=== PATIENT | male | born 1950 | race Caucasian/White ===

== ENCOUNTER 2019-01-21 15:30 | Inpatient (IN) | payer MEDICARE, OTHER, SELFPAY ==
[2019-01-21 15:49] VITALS: BP 127/76; PULSE 71; RESP 18; TEMP 36.8; O2SAT 94; BMI 28.1; BMI 28.2
--- NOTE | 2019-01-21 17:43 | PN_ITS ---
Subjective: Chief complaint: Consultation for medical management after admission to inpatient rehabitation unit. This is a 68 years of male patient who underwent fusion/revision from T10 down to the sacrum and he was admitted to inpatient rehabilitation unit due to debility for physical and occupational therapy. At this time, he complained of low back pain, dull aching pain, 10 out of 10 in severity, not radiating, aggravated by movement and nurses about ready to give him his pain medicine. He had urinary retention after surgery, Kelley catheter was placed which was taken out today and he was started on Flomax. His vital signs are stable. - Physical Exam General: Alert, Oriented x3, Cooperative, No apparent distress HEENT: Atraumatic, PERRLA, EOMI, Normocephalic Oral: Moist Mucosa, No Gingival or Mucosal Lesions/ Ulcerations Neck: Supple, No JVD, Negative Carotid Bruits, Trachea Midline, Thyroid Normal Size and Texture Lungs: Clear to auscultation, No rhonchi, No wheeze, No rales, Diminished Cardiovascular: Regular rate, Regular Rhythm, Normal S1, Normal S2, No murmurs, PMI Normal Abdomen: Bowel Sounds Present, Soft, Non Tender, Non-Distended, No Hepato- splenomegaly Extremities: No clubbing, No cyanosis, No edema Skin: No rashes, No breakdown Lymphatic: No Cervical, Supraclavicular, or Inguinal Adenopathy Neurological: Cranial nerves II-XII grossly intact, Motor Exam 5/5 strength throughout Psych/Mental Status: Normal Affect, Appropriate, Alert and oriented to time, place, person, mood and affect Vital Signs Temp Pulse Resp BP Pulse Ox 98.2 F 71 18 127/76 H 94 01/21/19 15:49 01/21/19 15:49 01/21/19 15:49 01/21/19 15:49 01/21/19 15:49 Oxygen Delivery Method Room Air Weight: 180 lb Body Mass Index (BMI) 28.1 Medical Necessity - Tobacco Use Smoking Status: Former smoker Tobacco Use: Cigarettes Assessment/Plan This is a 68 years old male patient underwent fusion/revision of the tendon down to the sacrum, subsequently admitted to inpatient rehabilitation unit for debility for physical and occupational therapy and I am seeing this patient for medical management. #1 debility/spinal fusion/revision of T10 down to sacrum: This was done at outside facility on January 15, 2019. Postoperative course complicated by urinary retention. At this time, patient complained of low back pain, 10 out of 10 severity. His vital signs are stable. He is on p.o. Dilaudid as well as Tylenol PRN for pain. CBC and BMP ordered for tomorrow. Plan for PT OT according to rehab team. #2 urinary retention: Status post removal of the Kelley catheter, patient has been urinating. Continue Flomax. #3 DVT prophylaxis: SCDs. This note was generated with [employer] dictation software. It may contain incorrect words, spelling, and punctuation that were not noted in checking the note before signing. Code Visit Inpatient E&M: 35242 Subs Hosp L2
[2019-01-21] MEDS: Tamsulosin HCl 0.4 MG Capsule PO (17:52)
[2019-01-21] MEDS: HYDROmorphone 2 MG TABLET PO (18:37)
[2019-01-21 19:41] VITALS: BP 130/80; PULSE 79; RESP 19; TEMP 36.7
[2019-01-21] MEDS: Senna/Docusate Sodium 1 Tablet 2 TABLET PO (21:27)
[2019-01-21] MEDS: Acetaminophen 500 MG Tablet 1000 MG PO (21:28)
[2019-01-21] MEDS: prednisoLONE eye drops (1 mL) 1 DROP OPTH.BTL 1 DRP EACH EYE (21:28)
--- NOTE | 2019-01-21 21:44 | NURSING ---
RT called to set up pt CPAP. RT arrived and in room.
[2019-01-21 22:00] VITALS: O2SAT 95
[2019-01-21] MEDS: LORazepam 0.5 MG Tablet PO (23:50)
[2019-01-22] MEDS: LORazepam 0.5 MG Tablet PO ×3 (00:26→23:13)
[2019-01-22] MEDS: HYDROmorphone 2 MG TABLET PO (04:50)
[2019-01-22] MEDS: Acetaminophen 500 MG Tablet 1000 MG PO (05:58)
[2019-01-22 06:15] LABS: Absolute Lymphocyte Count 1.32 X10^3/ul (0.83-4.51); Absolute Neutrophil Count 5.8 X10^3/uL (2.0-7.7); Basophil# 0.01 X10^3/uL; Basophil% 0.1 % (0-1); Eosinophil# 0.23 X10^3/uL; Eosinophils% 2.7 % (0-5); Hematocrit 29.9 % (40-54); Lymphocyte # 1.32 X10^3/ul (4.0); Lymphocyte % 15.5 % (19-41); Mean Corp Hgb Conc 33.4 g/gl (32-36); Mean Corpuscular Hgb 31.5 pg (27.0-32.0); Mean Corpuscular Volume 94.3 fL (80-94); Mean Platelet Vol. 8.8 fl (6.2-12.0); Monocyte# 1.09 X10^3/uL; Monocyte% 12.8 % (0-10); Neutrophil # 5.79 X10^3/uL (2.7-7.7); Platelet Count 285 K/mm3 (150-450); RBC Distribution Width CV 14.1 % (11.6-14.6); RBC Distribution Width SD 46.1 fl (35.1-43.9); Red Blood Count 3.17 M/mm3 (4.6-6.2); White Blood Count 8.5 K/mm3 (4.4-11.0)
[2019-01-22 06:16] LABS: POSITIVE COUNT NO; POSITIVE DIFFERENTIAL NO; POSITIVE MORPHOLOGY NO
[2019-01-22 06:33] LABS: ALB/GLOB Ratio 0.8 RATIO (0.9-2.4); AST(SGOT) 44 U/L (15-37); Alanine Aminotransfer ALT/SGPT 60 U/L (16-61); Albumin, Serum 2.5 g/dL (3.2-5.0); Alkaline Phosphatase 89 U/L (45-117); Anion Gap 9 (5-15); BUN 9 mg/dL (7-18); BUN/Creat Ratio 17.5 RATIO (10-20); Calcium,Total 8.2 mg/dL (8.5-10.1); Chloride 105 mmol/L (98-107); Creatinine, Serum 0.51 mg/dL (0.70-1.30); EST Glomerular Filtration Rate 169 mL/min (>60); Est Glom Filt Rate - Afr Amer 205 mL/min (>60); Estimated Creatinine Clearance 64.26 ml/min; Globulin 3.2 g/dL (2.2-4.2); Glucose 93 mg/dL (74-106); Potassium 3.5 mmol/L (3.5-5.1); Protein, Total 5.7 g/dL (6.4-8.2); Sodium Level 140 mmol/L (136-145)
[2019-01-22 07:12] VITALS: BP 119/80; PULSE 73; RESP 18; TEMP 36.9; O2SAT 93
[2019-01-22] MEDS: prednisoLONE eye drops (1 mL) 1 DROP OPTH.BTL 1 DRP EACH EYE ×2 (08:10→21:18)
[2019-01-22] MEDS: Ascorbic Acid 500 MG Tablet PO (08:10)
[2019-01-22] MEDS: Lidocaine 5% Patch 2 PATCH TOPICAL (08:10)
[2019-01-22] MEDS: Senna/Docusate Sodium 1 Tablet 2 TABLET PO ×2 (08:10→21:18)
[2019-01-22] MEDS: Calcium Carbonate 500 MG Tablet PO (08:10)
[2019-01-22] MEDS: Vitamin B Comp W-C Capsule 1 CAP PO (08:20)
--- NOTE | 2019-01-22 08:52 | HP.PCM.COS_ITS ---
History of Present Illness Date of Admission: 01/21/19 Chief Complaint: Debility secondary to TLIF L2-S1, PLF T10 Ilium The patient is a 68 year old M with PMH of GERD admitted to [facility] on 01/21/2019 for Debility secondary to TLIF L2-S1, PLF T10 Ilium, for greater than 3 hours of therapy daily with the goal of returning home after near his prior level of independence. On January 15, 2019 Dr. Haider performed a TLIF L2-S1 and PLIF T10 ilium due to degenerative thoracolumbar scoliosis, lumbar spine instability, i ntractable lower back pain, and failure of conservative therapy. Start patient developed urinary retention Flomax was initiated and Kelley catheter was discontinued on January 21, 2019. Patient also developed thrush and was started on nystatin. Patient lives in a 1 level house with spouse, was independent with driving, used walker or cane with mobility and needed minimal assistance with lower body dressing. Past Medical History Medical History: Medical History (Last Updated 01/21/19 @ 18:50 by Josette Hirsch) COPD (chronic obstructive pulmonary disease) J44.9 Allergies naproxen [From Aleve] Allergy (Mild, Verified 01/21/19 18:19) Rash Gadolinium-MRI Contrast Medium Allergy (Verified 01/03/17 15:44) Rash varenicline [From Chantix] Adverse Reaction (Verified 01/21/19 18:22) Anaphylaxis Surgical History: appendectomy, cataract - bilateral, - - pilondial cyst, right ankle fusion, lumbar decompression and disectomy L2-5 (2016), left foot two toes fused, facial cyst Psychiatric History: No pertinent psych hx Lives: Spouse/ Significant Other Smoking Status: Former smoker - x30 years 1 pack/day- cessation November 27, 2018. Tobacco Use: Cigarettes Alcohol: Occasional - 2 bottles of beer/daily Drugs: None - *Family History Maternal History Items: Unknown Paternal History Items: Unknown Review of Systems Constitutional: Denies: Chills, Fever, Weight Change Eyes: Denies: Blurred vision, Double vision, Vision Change HEENT: Reports: Sore Throat - per patient was receiving nystatin for thrush in throat. Denies: Difficulty Swallowing, Head Aches, Sinus Congestion, Sinus Drainage Cardiovascular: Denies: Chest Pain, Chest Pressure, Chest Tightness, Palpitations Respiratory: Denies: Cough, Shortness of breath at rest, Sputum production Gastrointestinal: Denies: Abdominal Pain, Nausea, Vomiting Genitourinary: Reports: Retention - patient stated he had urinary retention after surgery, denies any further sxs. Denies: Dysuria, Frequency, Hesitancy, Incontinence Musculoskeletal: Reports: Joint stiffness - back, Joint Tenderness - back 7/10, constant dull ache Skin: Reports: - - back incision Neurological: Denies: Numbness, Tingling, Focal weakness Psychiatric: Denies: Anxiety, Depression, Homicidal Ideations, Suicidal Ideations Hematologic/ Lymphatic: Denies: Easy Bruising, Easy Bleeding VTE Information - Inpt Only VTE Present on Admission: No VTE Mechan Device Prophylaxis: SCD's, Knee High ANNE Hose VTE Pharm Prophylaxis ordered?: No Reason prophylaxis not ordered:: Medical Contraindication - TLIF L2-S1 and PLIF T10 ilium surgery Subjective: Per patient rates pain 7/10 to back, describes it as a dull constant ache, without radiation. Per patient dilaudid prn not effective, discussed changing to oxyir prn. Denies HOLLY, blurred or double vision, chest pain or pressure, SOB or N/T. The nurse called Dr. Haider office left [facility] [place] for further dressing change orders and care. - Physical Exam General: Alert, Oriented x3, Cooperative HEENT: Atraumatic, PERRLA Oral: Moist Mucosa Neck: Supple, No JVD Lungs: Clear to auscultation, Normal air movement Cardiovascular: Regular rate, Regular Rhythm Abdomen: Bowel Sounds Present, Soft, Non Tender Extremities: No clubbing, No cyanosis, Edema - incision to back- mild Skin: Incision - mepilex drsg intact no redness or drng noted on or around drsg Neurological: Cranial nerves II-XII grossly intact, Neuro grossly intact, Motor Exam 5/5 strength throughout Psych/Mental Status: Normal Affect, Appropriate, Alert and oriented to time, place, person, mood and affect Vital Signs Temp Pulse Resp BP Pulse Ox 98.4 F 73 18 119/80 93 01/22/19 07:12 01/22/19 07:12 01/22/19 07:12 01/22/19 07:12 01/22/19 07:12 Oxygen Delivery Method Room Air Weight: 81.647 kg Body Mass Index (BMI) 28.1 Intake and Output for Last 24 Hours 01/20/19 01/21/19 01/22/19 23:59 23:59 23:59 Output Total 225 / 225 Balance -225 / -225 Laboratory Tests Past 24 Hrs 01/22/19 01/22/19 05:57 05:57 WBC 8.5 RBC 3.17 L Hgb 10.0 L Hct 29.9 L MCV 94.3 H MCH 31.5 MCHC 33.4 RDW 14.1 RDW Differential 46.1 H Plt Count 285 MPV 8.8 Immature Gran % (Auto) 0.900 Neut % (Auto) 68.0 Lymph % (Auto) 15.5 L Clinton % (Auto) 12.8 H Eos % (Auto) 2.7 Baso % (Auto) 0.1 Absolute Neuts (auto) 5.8 Absolute Lymphs (auto) 1.32 Total Counted Not Reportable Sodium 140 Potassium 3.5 Chloride 105 Carbon Dioxide 26.0 Anion Gap 9 BUN 9 Creatinine 0.51 L Estim Creat Clear Calc 64.26 Est GFR (MDRD) Af Amer 205 Est GFR (MDRD) Non-Af 169 BUN/Creatinine Ratio 17.5 Glucose 93 Calcium 8.2 L Total Bilirubin 0.40 AST 44 H ALT 60 Alkaline Phosphatase 89 Total Protein 5.7 L Albumin 2.5 L Globulin 3.2 Albumin/Globulin Ratio 0.8 L Assessment/Plan The patient is a 68 year old M with PMH of GERD admitted to [facility] on 01/21/2019 for Debility secondary to TLIF L2-S1, PLF T10 Ilium, for greater than 3 hours of therapy daily with the goal of returning home after near his prior level of independence. On January 15, 2019 Dr. Haider performed a TLIF L2-S1 and PLIF T10 ilium due to degenerative thoracolumbar scoliosis, lumbar spine instability, intractable lower back pain, and failure of conservative therapy. Start patient developed urinary retention Flomax was initiated and Kelley catheter was discontinued on January 21, 2019. Patient also developed thrush and was started on nystatin. Patient lives in a 1 level house with spouse, was independent with driving, used walker or cane with mobility and needed minimal assistance with lo wer body dressing. Plan - PT for mobility - OT for ADLs - TLIF L2-S1, PLF T10 Ilium mepliex drsg intact, awaiting return call from Dr. Haider office for further drsg and care instructions - Thrush on nystatin - GERD on pepcid and tums - Urinary retention on Flomax - DVT prophylaxis has knee high anne renteriae and SCDs, anticoagulation contraindicated - Bowel protocol - Fall precautions - Analgesics as needed - Medical management by hospitalist- consult - F/U with PCP and Neurosurgery
[2019-01-22] MEDS: oxyCODONE 5 MG Tablet PO ×4 (08:59→23:19)
[2019-01-22 10:21] LABS: Cholesterol 160 mg/dL (200); High Density Lipoprotein 41 mg/dL; Triglycerides 95 mg/dL; Very Low Density Lipoprotein 19 mg/dL (5-40)
--- NOTE | 2019-01-22 10:27 | NURSING ---
spoke with Essie CARLOS at Dr Vitaly Perez's office. ok to removed dressing, pt can shower, no bending, no lifting more than 10lbs. pt has appt on 01/28 call office if pt still here and unable to make appt she will give order to dc martin here.
--- NOTE | 2019-01-22 10:48 | NURSING ---
Mepilex dressing removed per order. incision D&I, no drainage, redness or edema noted. approximally 61 martin intact.
--- NOTE | 2019-01-22 10:52 | PCM.RU.PYE ---
Admission Information Actual Problem List:: Skin Intergrity, Pain, ALteration in Cmfrt, Bowel, Constipation, Mobility Impaired, Self Care Deficit, Alteration/ Air Exchange, Ineffect.D/C Plan r/t Psy Risk of Complications DVT: LMWH, CLEMENTE Hose, Sequential Compression Device Bleeding: Monitor Lab Values, Nursing to Teach Precautions for anti-coagulation therapy., Wound, if applicable, to be assessed every shift., Stroke patients assessed for lethargy or change in status. Infection: Clinical Staff to Monitor for S/S of infection:, S/S of infection include fever, redness, warmth, etc. Urinary Tract Infection: Monitor for frequency, burning, discomfort, or incontinence., Nursing will obtain urine sample for urinalysis and C&S when ordered. Aspiration: Clinical staff will monitor for coughing, drooling, congestion., Speech will evaluate swallowing and dsyphasia., Nursing will monitor patient swallowing during meals. Falls: Patient will be evaluated for Fall Precautions, Patient will be placed on Fall Precautions as indicated per protocol. Skin Breakdown: Nursing will assess skin daily using assessment tool., Nursing will place on Skin Breakdown Precautions as indicated. Pain: Clinical staff will assess patient's pain level per protocol., Medications will be given, if needed, and the pain level reassessed., Other methods: Massage, distraction, decrease stimulus, etc. used PRN. Plan of Care Patient requires physician specializing in physical medicine and rehab oversight to provide close medical supervision of rehab issues including: Pain Management, Sleep Problems, Bowel and Bladder, Medical and co-morbidity Management, DVT prophylaxis, Rehabilitation Leadership, Coordination of treatment team Patient needs Physical Therapy: For a minimum of 1 hour, At least 5 out of 7 days Patient needs Physical Therapy to improve:: Mobility, Mobility, Mobility, Strengthening, Transfers, Stretching, ROM, Endurance, Stairs, Gait, Balance Patient needs Occupational Therapy: For a minimum of 1 hour, At least 5 out of 7 days Patient needs Occupational Therapy to improve ADL's incl.: Eating, Grooming, Bathing, Dressing, Toileting, Toilet transfers, Community Reintegration, Higher functioning activities, Household tasks, Adaptive Equipment, Splinting, Other activities as determined Patient requires 24/7 Rehabilitation Nursing for: Pain Issues, Identifying and preventing risk factors, Monitoring and reporting current medical conditions, Assisting with ambulation, transfer, and all ADL's, Teaching patients about disease process and medications, Family teaching, Providing safe environment, Bowel and Bladder Issues, Skin integrity, Medication Management Patient needs Manager Of Operations/ Case Management for: Discharge Planning, Arranging Home Equipment or Services, Family Interventions Patient needs Dietary and Nutrition Services for: Adequate Nutrition, Nutritional Supplements, Nutritional Education Goals Patient will remain: free from falls, or injury at time of discharge. Patient will perform bed mobility at: MOD I level of assist. Patient will complete transfers from bed to chair at: MOD I level of assist. Patient will ambulate: 100 feet, with MOD I assist, with LRD Patient will complete upper body dressing at: MOD I level of assist. Patient will complete lower body dressing at: MOD I level of assist. Patient will complete toileting at: MOD I level of assist. Patient will perform bathing at: MOD I level of assist. Patient will complete grooming at: MOD I level of assist. Patient will complete home management skills at: MOD I level of assist. Patient will achieve: 12 stairs, at MOD I assist Patient will have pain level of: of 3 or less Patient's skin will: remain intact, free from infection. Patient will receive: adequate nutrition. Discharge Planning Pt Prognosis for Sig. Practical Improv. w/in Reasonable Time: Good Anticipated D/C Destination: Home with Outpt Therapy Was Preadmission Assessment Accurate?: Yes
[2019-01-22] MEDS: NYSTATIN 500,000 UNIT/5 ML UDC 500000 UNIT PO ×4 (12:25→21:17)
[2019-01-22] MEDS: Famotidine 20 MG Tablet PO (12:25)
[2019-01-22] MEDS: Acetaminophen 325 MG Tablet 650 MG PO ×2 (14:04→21:18)
[2019-01-22 16:45] VITALS: O2SAT 95
[2019-01-22] MEDS: Tamsulosin HCl 0.4 MG Capsule PO (17:14)
[2019-01-22 19:04] VITALS: BP 120/61; PULSE 82; RESP 18; TEMP 36.4; O2SAT 95
[2019-01-22 22:00] VITALS: RESP 18; O2SAT 95
[2019-01-23] MEDS: oxyCODONE 5 MG Tablet PO ×5 (03:27→21:23)
[2019-01-23] MEDS: Acetaminophen 325 MG Tablet 650 MG PO ×3 (06:04→21:20)
[2019-01-23 07:06] LABS: AST(SGOT) 29 U/L (15-37); Alanine Aminotransfer ALT/SGPT 47 U/L (16-61); Albumin, Serum 2.3 g/dL (3.2-5.0); Alkaline Phosphatase 86 U/L (45-117); Bilirubin, Direct 0.11 mg/dL (0.00-0.30); Globulin 3.2 g/dL (2.2-4.2); Protein, Total 5.5 g/dL (6.4-8.2)
[2019-01-23 07:14] VITALS: O2SAT 92
[2019-01-23] MEDS: Calcium Carbonate 500 MG Tablet PO (07:59)
[2019-01-23] MEDS: Vitamin B Comp W-C Capsule 1 CAP PO (07:59)
[2019-01-23] MEDS: Ascorbic Acid 500 MG Tablet PO (07:59)
[2019-01-23] MEDS: Senna/Docusate Sodium 1 Tablet 2 TABLET PO ×2 (07:59→21:19)
[2019-01-23] MEDS: Famotidine 20 MG Tablet PO (07:59)
[2019-01-23] MEDS: prednisoLONE eye drops (1 mL) 1 DROP OPTH.BTL 1 DRP EACH EYE ×2 (08:00→21:19)
[2019-01-23] MEDS: NYSTATIN 500,000 UNIT/5 ML UDC 500000 UNIT PO ×4 (08:00→21:19)
[2019-01-23] MEDS: Lidocaine 5% Patch 2 PATCH TOPICAL (08:00)
[2019-01-23 08:20] VITALS: BP 102/60; PULSE 72; RESP 18; TEMP 36.6; O2SAT 96
[2019-01-23] MEDS: fentaNYL 25 MCG Patch TRANSDERM. (08:44)
--- NOTE | 2019-01-23 09:24 | PCM.PN.NEU ---
Subjective: Per nursing patient has had pain last night and today. Patient rates pain to back 8/10, constant sharp to dull ache. Prn Dilaudid was d/c yesterday and started prn oxyir in addition to tylenol, per patient dilaudid did not help with his pain. Tylenol was decreased to 650 mg tid due to elevated AST levels. Duragesic 25 mcg patch ordered. AST/ALT levels were elevated at previous hospital, yesterday AST 44. Repeat labs showed decrease AST 29. - Physical Exam General: Alert, Oriented x3, Cooperative Oral: Moist Mucosa Neck: Supple, No JVD Lungs: Clear to auscultation, Normal air movement Cardiovascular: Regular rate, Regular Rhythm Abdomen: Bowel Sounds Present, Soft, Non Tender Extremities: No clubbing, No cyanosis, - - mild to back incision Skin: Incision - martin intact without redness or drng. Neurological: Cranial nerves II-XII grossly intact, Deep Tendon Reflexes 2+/4 and Symmetrical, Motor Exam 5/5 strength throughout Psych/Mental Status: Normal Affect, Appropriate, Alert and oriented to time, place, person, mood and affect Vital Signs Temp Pulse Resp BP Pulse Ox 97.8 F 72 18 102/60 96 01/23/19 08:20 01/23/19 08:20 01/23/19 08:20 01/23/19 08:20 01/23/19 08:20 Oxygen Delivery Method Room Air Weight: 81.65 kg Body Mass Index (BMI) 28.1 Intake and Output for Last 24 Hours 01/21/19 01/22/19 01/23/19 23:59 23:59 23:59 Output Total 675 / 675 Balance -675 / -675 Laboratory Tests Past 24 Hrs 01/22/19 01/23/19 05:57 06:22 Total Bilirubin 0.40 Direct Bilirubin 0.11 AST 29 ALT 47 Alkaline Phosphatase 86 Total Protein 5.5 L Albumin 2.3 L Globulin 3.2 Triglycerides 95 Cholesterol 160 LDL Cholesterol 100 VLDL Cholesterol 19 HDL Cholesterol 41 Medical Necessity - Tobacco Use Smoking Status: Former smoker - x30 years 1 pack/day- cessation November 27, 2018. Tobacco Use: Cigarettes Assessment/Plan The patient is a 68 year old M with PMH of GERD admitted to [facility] on 01/21/2019 for Debility secondary to TLIF L2-S1, PLF T10 Ilium, for greater than 3 hours of therapy daily with the goal of returning home after near his prior level of independence. On January 15, 2019 Dr. Vitaly Perez performed a TLIF L2-S1 and PLIF T10 ilium due to degenerative thoracolumbar scoliosis, lumbar spine instability, intractable lower back pain, and failure of conservative therapy. Post-op, patient developed urinary retention Flomax was initiated and Kelley catheter was discontinued on January 21, 2019. Patient also developed thrush and was started on nystatin. Patient lives in a 1 level house with spouse, was independent with driving, used walker or cane with mobility and needed minimal assistance with lower body dressing. Plan - PT for mobility - OT for ADLs - TLIF L2-S1, PLF T10 Ilium Patient has appt on 01/28/19 and martin will be d/c at appt, polar care as needed - Thrush on nystatin - GERD on pepcid and tums - Urinary retention on Flomax - Acute on chronic back pain on tylenol, oxyir and duragesic, polar care as needed - Elevated AST/ALT at previous hospital. On 01/22/19 elevated AST 44 ALT 60. On 01/23/19 levels WNL AST 29, ALT 47. - DVT prophylaxis has knee high anne hose and SCDs, anticoagulation contraindicated - Bowel protocol - Fall precautions - Analgesics as needed - Medical management by hospitalist- consult - F/U with PCP and Neurosurgery
[2019-01-23] MEDS: Tamsulosin HCl 0.4 MG Capsule PO (17:03)
[2019-01-23 20:06] VITALS: BP 117/73; PULSE 82; RESP 16; TEMP 36.5; O2SAT 96
[2019-01-23] MEDS: LORazepam 0.5 MG Tablet PO (21:23)
--- NOTE | 2019-01-24 00:51 | NURSING ---
Reviewed and agree with ENGINEERING GROUP MANAGER documentation and FIMs charting.
[2019-01-24] MEDS: oxyCODONE 5 MG Tablet PO ×5 (01:23→19:02)
[2019-01-24] MEDS: Acetaminophen 325 MG Tablet 650 MG PO ×3 (05:42→19:50)
[2019-01-24] MEDS: Magnesium Hydroxide 30 ML UDC PO (05:43)
--- NOTE | 2019-01-24 06:22 | NURSING ---
pt states he has a pain level of 10/10 this am. pt medicated with scheduled tylenol and prn oxyir 10 mg. pt still remains very painful and refuses am care. therapy aware and will do ADL with pt at 0800 therapy time. will continue to monitor pain and discomfort.
[2019-01-24] MEDS: Senna/Docusate Sodium 1 Tablet 2 TABLET PO (07:48)
[2019-01-24] MEDS: Famotidine 20 MG Tablet PO (07:49)
[2019-01-24] MEDS: Calcium Carbonate 500 MG Tablet PO (07:49)
[2019-01-24] MEDS: Vitamin B Comp W-C Capsule 1 CAP PO (07:49)
[2019-01-24] MEDS: Ascorbic Acid 500 MG Tablet PO (07:49)
[2019-01-24] MEDS: NYSTATIN 500,000 UNIT/5 ML UDC 500000 UNIT PO ×3 (07:56→19:50)
[2019-01-24] MEDS: prednisoLONE eye drops (1 mL) 1 DROP OPTH.BTL 1 DRP EACH EYE ×2 (08:27→19:49)
[2019-01-24] MEDS: Bisacodyl 10 MG Suppository RECTAL (08:27)
[2019-01-24] MEDS: Lidocaine 5% Patch 2 PATCH TOPICAL (08:31)
--- NOTE | 2019-01-24 08:51 | PN.NEURO_ITS ---
Subjective: Per patient, pain is better controlled and rates pain to back 7/10 with therapy, describes it as a dull, constant ache. c/o constipation, prn Dulcolax suppository given. discussed to increase fluid and fiber intake, miralax bid added. - Physical Exam General: Alert, Oriented x3, Cooperative HEENT: Atraumatic, PERRLA Oral: Moist Mucosa Neck: Supple, No JVD Lungs: Clear to auscultation, Normal air movement Cardiovascular: Regular rate, Regular Rhythm Abdomen: Bowel Sounds Present, Soft, Non Tender Extremities: No clubbing, No cyanosis, - - mild to lumbar incision Skin: Incision - martin intact to back, without redness or drng Neurological: Cranial nerves II-XII grossly intact, Deep Tendon Reflexes 2+/4 and Symmetrical, Motor Exam 5/5 strength throughout Psych/Mental Status: Normal Affect, Appropriate, Alert and oriented to time, place, person, mood and affect Vital Signs Temp Pulse Resp BP Pulse Ox 97.7 F L 82 16 117/73 96 01/23/19 20:06 01/23/19 20:06 01/23/19 20:06 01/23/19 20:06 01/23/19 20:06 Oxygen Delivery Method Room Air Weight: 81.65 kg Body Mass Index (BMI) 28.1 Intake and Output for Last 24 Hours 01/22/19 01/23/19 01/24/19 23:59 23:59 23:59 Output Total 675 / 675 Balance -675 / -675 Medical Necessity - Tobacco Use Smoking Status: Former smoker - x30 years 1 pack/day- cessation November 27, 2018. Tobacco Use: Cigarettes Assessment/Plan The patient is a 68 year old M with PMH of GERD admitted to [facility] on 01/21/2019 for Debility secondary to TLIF L2-S1, PLF T10 Ilium, for greater than 3 hours of therapy daily with the goal of returning home after near his prior level of independence. On January 15, 2019 Dr. Vitaly Perez performed a TLIF L2-S1 and PLIF T10 ilium due to degenerative thoracolumbar scoliosis, lumbar spine instability, intractable lower back pain, and failure of conservative therapy. Post-op, patient developed urinary retention Flomax was initiated and Kelley catheter was discontinued on January 21, 2019. Patient also developed thrush and was started on nystatin. Patient lives in a 1 level house with spouse, was independent with driving, used walker or cane with mobility and needed minimal assistance with lower body dressing. Plan - PT for mobility - OT for ADLs - TLIF L2-S1, PLF T10 Ilium Patient has appt on 01/28/19 and martin will be d/c at appt, polar care as needed - Thrush on nystatin - GERD on pepcid and tums - Urinary retention on Flomax - Acute on chronic back pain on tylenol, oxyir, lidoderm patch and duragesic, polar care as needed - Elevated AST/ALT at previous hospital. On 01/22/19 elevated AST 44 ALT 60. On 01/23/19 levels WNL AST 29, ALT 47. - Constipation on senekot, miralax, bowel protocol - DVT prophylaxis has knee high anne hose and SCDs, anticoagulation contraindicated - Bowel protocol - Fall precautions - Analgesics as needed - Medical management by hospitalist- consult - F/U with PCP and Neurosurgery
[2019-01-24 09:04] VITALS: BP 124/69; PULSE 78; RESP 18; TEMP 36.8; O2SAT 95
--- NOTE | 2019-01-24 09:36 | CT_ITS ---
STUDY: CT ABDOMEN AND PELVIS WITH CONTRAST REASON FOR EXAM: Male, 68 years old. Abdominal pain. Recent lumbar laminectomy. Right hip pain and constipation. RADIATION DOSAGE (If Supplied By Facility): CTDIvol = ( 15.00 ) mGy, DLP = ( 994.02 ) mGycm TECHNIQUE: Transaxial images were obtained from the dome of the diaphragm to the symphysis pubis without oral contrast. 100 IV Isovue 300 was administered. Sagittal and coronal images were reconstructed. Individualized dose optimization techniques were used for this CT. COMPARISON: None. FINDINGS: Small right pleural effusion with atelectasis at both lung bases. Coronary artery calcification with the stenting. Normal liver. Normal gallbladder and extrahepatic biliary system. Normal spleen. Normal pancreas. Normal bilateral adrenal glands. Normal right kidney. There is a 10.5 mm nonobstructive calculus in the lower pole of the left kidney. Moderate sized hiatal hernia. Normal small intestine. There are multiple colonic diverticula consistent with diverticulosis. A large amount of fecal material is seen in the colon worse in the right hemicolon. The appendix is visualized and appears normal. There is scattered atherosclerotic calcification of the abdominal aorta, without a demonstrated aneurysm. Normal inferior vena cava. Normal retroperitoneum. Distended urinary bladder with an air-fluid level suggestive of prior Kelley catheter catheterization. There are prostatic calcifications. Normal abdominal wall. Status post intraventricular screw and bar fixation from the T10-S1 level with a laminectomy. CT/Abdomen/Pelvis WITH Contrast IMPRESSION: Small right pleural effusion with bibasilar atelectasis. Large amount of fecal material is seen in the colon was in the right hemicolon. Nonobstructive calculus in the lower pole of Sigmoid diverticulosis. Electronically Signed: Pernell Dowling, at 14:09 EDT , Service support ,
[2019-01-24] MEDS: Polyethylene Glycol 3350 17 GM PACKET PO (10:02)
[2019-01-24 10:54] VITALS: O2SAT 95
--- NOTE | 2019-01-24 13:30 | NURSING ---
Surgeons office called yesterday to inquire about upcoming appt this monday the and office staff reported that this appt has been cancelled already and had been notified and that nursing staff here can remove martin as scheduled on monday.
--- NOTE | 2019-01-24 14:08 | PCM.PN.HOSP ---
Subjective: Patient seen and examined. He was admitted to the rehab unit after he underwent fusion from T10 down to the sacrum on account of scoliosis. He complains of Right lower quadrant pain due to constipation. He had abdominal CT which showed a large stool burden. Review of systems otherwise negative. Vitals/I&O's: Vital Signs Temp Pulse Resp BP Pulse Ox 98.2 F 78 18 124/69 H 95 01/24/19 09:04 01/24/19 09:04 01/24/19 09:04 01/24/19 09:04 01/24/19 10:54 Oxygen Delivery Method Room Air Weight: 180 lb 0.119 oz Body Mass Index (BMI) 28.1 Intake and Output for Last 24 Hours 01/22/19 01/23/19 01/24/19 23:59 23:59 23:59 Output Total 675 / 675 Balance -675 / -675 General: Alert, Oriented x3, Cooperative, No apparent distress HEENT: Atraumatic, PERRLA, EOMI, Normocephalic Oral: Moist Mucosa, No Gingival or Mucosal Lesions/ Ulcerations Neck: Supple, No JVD, Negative Carotid Bruits, Lungs: Clear to auscultation, No rhonchi, No wheeze, No rales, Diminished Cardiovascular: Regular rate, Regular Rhythm, Normal S1, Normal S2, No murmurs, PMI Normal Abdomen: Bowel Sounds Present, Soft, Non Tender, Non-Distended, No Hepato-splenomegaly Extremities: No clubbing, No cyanosis, No edema Skin: No rashes, No breakdown; martin along spine intact; surgical wound healing well Lymphatic: No Cervical, Supraclavicular, or Inguinal Adenopathy Neurological: Cranial nerves II-XII grossly intact, Motor Exam 5/5 strength throughout Psych/Mental Status: Normal Affect, Appropriate, Alert and oriented to time, place, person, mood and affect Current Medications Acetaminophen (Tylenol) 650 mg PO TID [facility] Last Admin: 01/24/19 05:42 Dose: 650 mg Documented by: Ascorbic Acid (Vitamin C) 500 mg PO DAILY@0800 [facility] Last Admin: 01/24/19 07:49 Dose: 500 mg Documented by: Bisacodyl (Dulcolax) 10 mg RECTAL .PRN X 1 PRN PRN Reason: Constipation Last Admin: 01/24/19 08:27 Dose: 10 mg Documented by: Calcium Carbonate (Tums) 500 mg PO DAILY@0800 [facility] Last Admin: 01/24/19 07:49 Dose: 500 mg Documented by: Cholecalciferol (Vitamin D) 2,000 unit PO DAILY [facility] Last Admin: 01/24/19 07:48 Dose: 2,000 unit Documented by: Famotidine (Pepcid) 20 mg PO DAILY [facility] Last Admin: 01/24/19 07:49 Dose: 20 mg Documented by: Fentanyl (Duragesic Patch) 25 mcg TRANSDERM. Q3D [facility] Last Admin: 01/23/19 08:44 Dose: 25 mcg Documented by: Lidocaine (Lidoderm Patch) 2 patch TOPICAL DAILY [facility]; Protocol Last Admin: 01/24/19 08:31 Dose: 2 patch Documented by: Lorazepam (Ativan) 0.5 mg PO QHS PRN PRN PRN Reason: Insomnia Last Admin: 01/23/19 21:23 Dose: 0.5 mg Documented by: Magnesium Hydroxide (Milk Of Magnesia) 30 ml PO .PRN X 1 PRN PRN Reason: Constipation Last Admin: 01/24/19 05:43 Dose: 30 ml Documented by: Multivitamins (Allbee W/C Caplet, Thera B Comp/C) [facility] Last Admin: 01/24/19 07:49 Dose: 1 capsule Documented by: Nutritional Formula (Lactose Free) (Ensure Enlive) 120 ml PO 4X/DAY [facility] Last Admin: 01/24/19 10:02 Dose: 120 ml Documented by: Nystatin (Nystatin) 500,000 unit PO 4X/DAY [facility] Stop: 01/24/19 22:00 Last Admin: 01/24/19 07:56 Dose: 500,000 unit Documented by: Oxycodone HCl (Oxyir) 5 - 10 mg PO Q4H PRN PRN PRN Reason: SEVERE PAIN (6-10/10) Last Admin: 01/24/19 10:02 Dose: 10 mg Documented by: Polyethylene Glycol (Miralax) 17 gm PO BID [facility] Last Admin: 01/24/19 10:02 Dose: 17 gm Documented by: Prednisolone Acetate (Pred Forte Eye Drops (1 Ml)) 1 drop EACH EYE BID [facility] Last Admin: 01/24/19 08:27 Dose: 1 drop Documented by: Senna/Docusate Sodium (Senokot-S, Apolonia-Colace) 2 tablet PO BID [facility] Last Admin: 01/24/19 07:48 Dose: 2 tablet Documented by: Tamsulosin HCl (Flomax) 0.4 mg PO DAILY@1730 [facility] Last Admin: 01/23/19 17:03 Dose: 0.4 mg Documented by: Medical Necessity - Tobacco Use Smoking Status: Former smoker - x30 years 1 pack/day- cessation November 27, 2018. Tobacco Use: Cigarettes Assessment/Plan 1. Scoliosis s/p spinal fusion (T10 down to sacrum) pain well controlled post op course was complicated by urinary retention back pain well controlled on PO oxy-IR and tylenol for pain PT/OT on board 2. Slow transit constipation Pains of right lower quadrant pain. CT abdomen showed large stool burden. Patient given mag citrate to help with constipation. 3. History of urinary retention: Kelley catheter now out. On Flomax. DVT prophylaxis: SCDs. Code Visit Inpatient E&M: 68739 Subs Hosp L2
[2019-01-24] MEDS: Magnesium Citrate 300 ML PO (14:35)
[2019-01-24] MEDS: Tamsulosin HCl 0.4 MG Capsule PO (17:40)
[2019-01-24 19:10] VITALS: BP 138/64; PULSE 83; RESP 18; TEMP 36.9; O2SAT 94
[2019-01-25] MEDS: oxyCODONE 5 MG Tablet PO ×4 (03:27→16:28)
[2019-01-25] MEDS: 0.9% NaCl Peripheral Flush Adult/Peds IV (03:29)
[2019-01-25] MEDS: Acetaminophen 325 MG Tablet 650 MG PO ×2 (05:18→15:02)
[2019-01-25 07:00] VITALS: BP 122/70; PULSE 75; RESP 16; TEMP 36.8; O2SAT 98
[2019-01-25] MEDS: Ascorbic Acid 500 MG Tablet PO (07:41)
[2019-01-25] MEDS: Famotidine 20 MG Tablet PO (07:41)
[2019-01-25] MEDS: Lidocaine 5% Patch 2 PATCH TOPICAL (07:41)
[2019-01-25] MEDS: Vitamin B Comp W-C Capsule 1 CAP PO (07:41)
[2019-01-25] MEDS: Calcium Carbonate 500 MG Tablet PO (07:41)
[2019-01-25] MEDS: prednisoLONE eye drops (1 mL) 1 DROP OPTH.BTL 1 DRP EACH EYE (07:51)
--- NOTE | 2019-01-25 07:58 | PCM.PN.NEU ---
Subjective: CT of abd/pelvis done which showed Small right pleural effusion with bibasilar atelectasis, Large amount of fecal material is seen in the colon was in the right hemicolon. Nonobstructive calculus 10.5mm in the lower pole of left kidney and Sigmoid diverticulosis. Patient was given mom, dulcolax supp, soap suds enema and magnesium citrate. Patient has had 7 lg formed and loose stools since yesterday. Will defer to urology outpatient to f/u for post urinary retention and nonobstructive calculus. C/o right pain that radiates up to right groin, describes it as a burning pain, intermittently. Rates pain 10/10. Now patient, stated he has severe burning pain radiating up through his back, pain level 10/10. Patient is unable to tolerate therapy session this am. RN [place] [facility] [place] through answering service to return call. - Physical Exam General: Alert, Oriented x3, Cooperative HEENT: Atraumatic, PERRLA Oral: Moist Mucosa Neck: Supple, No JVD Lungs: Clear to auscultation, Normal air movement Cardiovascular: Regular rate, Regular Rhythm Abdomen: Bowel Sounds Present, Soft, Non Tender Extremities: No clubbing, No cyanosis, - - mild to back Skin: Incision - Martin intact to back without redness or drng Neurological: Cranial nerves II-XII grossly intact, Motor Exam 5/5 strength throughout Psych/Mental Status: Normal Affect, Appropriate, Alert and oriented to time, place, person, mood and affect Vital Signs Temp Pulse Resp BP Pulse Ox 98.4 F 83 18 138/64 H 94 01/24/19 19:10 01/24/19 19:10 01/24/19 19:10 01/24/19 19:10 01/24/19 19:10 Oxygen Delivery Method Room Air Weight: 81.65 kg Body Mass Index (BMI) 28.1 Medical Necessity - Tobacco Use Smoking Status: Former smoker - x30 years 1 pack/day- cessation November 27, 2018. Tobacco Use: Cigarettes Assessment/Plan The patient is a 68 year old M with PMH of GERD admitted to [facility] on 01/21/2019 for Debility secondary to TLIF L2-S1, PLF T10 Ilium, for greater than 3 hours of therapy daily with the goal of returning home after near his prior level of independence. On January 15, 2019 Dr. Vitaly Perez performed a TLIF L2-S1 and PLIF T10 ilium due to degenerative thoracolumbar scoliosis, lumbar spine instability, intractable lower back pain, and failure of conservative therapy. Post-op, patient developed urinary retention Flomax was initiated and Kelley catheter was discontinued on January 21, 2019. Patient also developed thrush and was started on nystatin. Patient lives in a 1 level house with spouse, was independent with driving, used walker or cane with mobility and needed minimal assistance with lower body dressing. Plan - PT for mobility - OT for ADLs - TLIF L2-S1, PLF T10 Ilium Patient has appt on 01/28/19 and martin will be d/c at [facility] as needed. Awaiting return call back from Dr. Perez. - Thrush on nystatin completed. - GERD on pepcid and tums - Urinary retention on Flomax - Acute on chronic back pain on tylenol, oxyir, lidoderm patch and duragesic, polar care as needed - Elevated AST/ALT at previous hospital. On 01/22/19 elevated AST 44 ALT 60. On 01/23/19 levels WNL AST 29, ALT 47. - Constipation on senekot, miralax, bowel protocol - DVT prophylaxis has knee high anne hose and SCDs, anticoagulation contraindicated - Bowel protocol - Fall precautions - Analgesics as needed - Medical management by hospitalist- consult - F/U with PCP and Neurosurgery
--- NOTE | 2019-01-25 08:35 | NURSING ---
Dr. Perez, surgeon paged via office personnel regarding patient's pain increasing and unable to tolerate therapy, increased scott leg weakness. Severe pain radiating from Right hip into the back and c/o burning. Patient currently resting in bed. Brittany JONES assessed patient this AM and notified this nurse to notify surgeon.
--- NOTE | 2019-01-25 08:56 | NURSING ---
duragesic maintained to left arm
--- NOTE | 2019-01-25 09:00 | NURSING ---
Surgeon Dr. Perez repaged due to no call back. Patient continues to rest in bed.
--- NOTE | 2019-01-25 10:00 | NURSING ---
Brittany JONES for neurology staff notified Dr. Perez's nurse practitioner about patient's new complaints of pain and inability to do therapy even though therapy staff has offered several times.
--- NOTE | 2019-01-25 12:10 | PCM.RU.PYE ---
Admission Information Status Changes from Prescreening?: No changes Identified Actual Problem List:: Skin Intergrity, Pain, ALteration in Cmfrt, Bowel, Constipation, Mobility Impaired, Self Care Deficit, Alteration/ Air Exchange, Ineffect.D/C Plan r/t Psy Potential Problem List:: DVT, Bleeding, Infection, UTI, Aspiration, Falls, Skin Integrity, Depression Risk of Complications DVT: LMWH, CLEMENTE Hose, Sequential Compression Device Bleeding: Monitor Lab Values, Nursing to Teach Precautions for anti-coagulation therapy., Wound, if applicable, to be assessed every shift., Stroke patients assessed for lethargy or change in status. Infection: Clinical Staff to Monitor for S/S of infection:, S/S of infection include fever, redness, warmth, etc. Urinary Tract Infection: Monitor for frequency, burning, discomfort, or incontinence., Nursing will obtain urine sample for urinalysis and C&S when ordered. Aspiration: Clinical staff will monitor for coughing, drooling, congestion., Speech will evaluate swallowing and dsyphasia., Nursing will monitor patient swallowing during meals. Falls: Patient will be evaluated for Fall Precautions, Patient will be placed on Fall Precautions as indicated per protocol. Skin Breakdown: Nursing will assess skin daily using assessment tool., Nursing will place on Skin Breakdown Precautions as indicated. Pain: Clinical staff will assess patient's pain level per protocol., Medications will be given, if needed, and the pain level reassessed., Other methods: Massage, distraction, decrease stimulus, etc. used PRN. Plan of Care Patient requires physician specializing in physical medicine and rehab oversight to provide close medical supervision of rehab issues including: Pain Management, Sleep Problems, Bowel and Bladder, Medical and co-morbidity Management, DVT prophylaxis, Rehabilitation Leadership, Coordination of treatment team Patient needs Physical Therapy: For a minimum of 1 hour, At least 5 out of 7 days Patient needs Physical Therapy to improve:: Mobility, Mobility, Mobility, Strengthening, Transfers, Stretching, ROM, Endurance, Stairs, Gait, Balance Patient needs Occupational Therapy: For a minimum of 1 hour, At least 5 out of 7 days Patient needs Occupational Therapy to improve ADL's incl.: Eating, Grooming, Bathing, Dressing, Toileting, Toilet transfers, Community Reintegration, Higher functioning activities, Household tasks, Adaptive Equipment, Splinting, Other activities as determined Patient requires 24/ Rehabilitation Nursing for: Pain Issues, Identifying and preventing risk factors, Monitoring and reporting current medical conditions, Assisting with ambulation, transfer, and all ADL's, Teaching patients about disease process and medications, Family teaching, Providing safe environment, Bowel and Bladder Issues, Skin integrity, Medication Management Patient needs Business Support Specialist/ Case Management for: Discharge Planning, Arranging Home Equipment or Services, Family Interventions Patient needs Dietary and Nutrition Services for: Adequate Nutrition, Nutritional Supplements, Nutritional Education Goals Patient will remain: free from falls, or injury at time of discharge. Patient will perform bed mobility at: MOD I level of assist. Patient will complete transfers from bed to chair at: MOD I level of assist. Patient will ambulate: 100 feet, with MOD I assist, with LRD Patient will complete upper body dressing at: MOD I level of assist. Patient will complete lower body dressing at: MOD I level of assist. Patient will complete toileting at: MOD I level of assist. Patient will perform bathing at: MOD I level of assist. Patient will complete grooming at: MOD I level of assist. Patient will complete home management skills at: MOD I level of assist. Patient will achieve: 12 stairs, at MOD I assist Patient will have pain level of: of 3 or less Patient's skin will: remain intact, free from infection. Patient will receive: adequate nutrition. Discharge Planning Pt Prognosis for Sig. Practical Improv. w/in Reasonable Time: Good Anticipated D/C Destination: Home with Outpt Therapy Was Preadmission Assessment Accurate?: Yes
[2019-01-25] MEDS: Gabapentin 300 MG Capsule PO ×2 (12:12→16:28)
[2019-01-25] MEDS: MethylPREDNISolone DosePak 4 MG BOX PO ×2 (12:12→16:29)
--- NOTE | 2019-01-25 12:34 | CASEMGMT ---
Addendum entered by Nereida Hidalgo 01/25/19 14:49: Patient accepted at [facility]. toured and is first choice. Pt agreeable. Nursing notified. Pt to discharge today 01/25 to [facility]. PASRR completed. Original Note: Social Work Spoke with pt and about transferring to SNF. provided SW with several choices. Made referrals to SNFs. Awaiting acceptance/denial. Will continue to follow. Nereida Hidalgo, KETAN TAYLORW
[2019-01-25] MEDS: tiZANidine HCl 2 MG Tablet 4 MG PO (15:02)
--- NOTE | 2019-01-25 16:37 | PCM.EXTCARCO ---
- Diet 01/21/19 16:27 Diet: Regular Diet - Routine Orders/Code Status Enema Frequency: Daily PRN Suppository Type: Dulcolax 10mg Suppository Frequency: Daily PRN O2 Frequency: PRN - Wound(s) back Wound Type: Surgical Incision - martin intact to lumbar area to back drain site Wound Type: Surgical Incision - Therapies Weight Bearing: Weight bearing as tolerated Physical Therapy: Eval and Treat Occupational Therapy: Eval and Treat - Allergies/Procedures Done in Hospital Allergies/Adverse Reactions: Allergies naproxen [From Aleve] Allergy (Mild, Verified 01/21/19 18:19) Rash Gadolinium-MRI Contrast Medium Allergy (Verified 01/03/17 15:44) Rash varenicline [From Chantix] Adverse Reaction (Verified 01/21/19 18:22) Anaphylaxis - Type of Care/Length of Stay Estimated LOS: Convalescent Care Less Than 30 days Type of Care Needed: Skilled Rehab Potential: Fair Prognosis: Fair - Additional Orders/Day of Discharge Additional Orders: D/C martin to back on 01/28/2019. F/U with Dr. Perez surgeon. F/U with urology d/t post-op urinary retention started on flomax and. Ct scan showed Non-obstructive calculus 10.5mm in the lower pole of left kidney. H&P will serve as current which was dated: 01/22/19 Day of Discharge: 01/25/19 - Follow Up Care Primary Care Physician: Harvey Salguero DO [Primary Care Provider] - Please Follow Up With: Urology Please Follow Up With: Dr. Perez surgeon
--- NOTE | 2019-01-25 16:45 | DS.PCM_ITS ---
Rehab Discharge Summary DATE OF ADMISSION: 01/21/19 DATE OF DISCHARGE: 01/25/2019 - Rehab Diagnosis Debility secondary to TLIF L2-S1, PLF T10 Ilium - Physical Exam General: Alert, Oriented x3, Cooperative HEENT: Atraumatic, PERRLA Oral: Moist Mucosa Neck: Supple, No JVD Lungs: Clear to auscultation, Normal air movement Cardiovascular: Regular rate, Regular Rhythm Abdomen: Bowel Sounds Present, Soft, Non Tender Extremities: No clubbing, No cyanosis, Edema - mild to back Skin: Incision - martin intact to back without redness or drng Neurological: Cranial nerves II-XII grossly intact, Deep Tendon Reflexes 2+/4 and Symmetrical, Motor Exam 5/5 strength throughout Psych/Mental Status: Normal Affect, Appropriate, Alert and oriented to time, place, person, mood and affect Vital Signs Temp Pulse Resp BP Pulse Ox 98.2 F 75 16 122/70 H 98 01/25/19 07:00 01/25/19 07:00 01/25/19 07:00 01/25/19 07:00 01/25/19 07:00 Oxygen Delivery Method Room Air Weight: 81.65 kg Body Mass Index (BMI) 28.1 Intake and Output for Last 24 Hours 01/23/19 01/24/19 01/25/19 23:59 23:59 23:59 Intake Total 240 / 240 Balance 240 / 240 Discharge Diet: No Restrictions Discharge Activity: Return to Normal Activity, May Not Drive, May Shower, Use Walker Weight Bearing Status: Weight bearing as tolerated Call your doctor if your incision/area has: Continuous Slow Oozing, Sudden Increased Bleeding, Increased Pain/ Swelling, Increased Redness, Foul Smelling Discharge, Swelling at the incision site Call your doctor if you observe: Fever of 101 or Higher, Coldness, Increased Pain, Numbness or Tingling, Change in Color, Inability to urinate, Inability to have a bowel movement, Shortness of breath, Dizziness, Fainting spells, Swelling in the ankles, Chest pain, Prolonged hiccoughing, Increased palpitations (irregular heartbeat), Calf discomfort, Uncontrolled pain Cleanse incision/area with: Soap & Water Home Medications: Medications to take at Discharge Acetaminophen [Tylenol Tablet] 650 mg PO TID tablet 01/25/19 Ascorbic Acid [Vitamin C] 500 mg PO DAILY@0800 tablet 01/25/19 Calcium Carbonate [Tums] 500 mg PO DAILY@0800 tablet 01/25/19 Cholecalciferol (VIT D3) [Vitamin D3] 2,000 unit PO DAILY tablet 01/25/19 Ensure Enlive 120 ml PO 4X/DAY liquid 01/25/19 Famotidine [Pepcid] 20 mg PO DAILY tablet 01/25/19 Gabapentin [Neurontin] 300 mg PO TIDCM #0 capsule 01/25/19 Lidocaine [Lidoderm Patch] 2 patch TOPICAL DAILY patch 01/25/19 MethylPREDNISolone DosePak [Medrol DosePak] 12 mg PO 1200 tablet 01/25/19 Oxycodone [Oxyir] 5 - 10 mg PO Q4H PRN PRN #70 tab 01/25/19 Polyethylene Glycol 3350 [Miralax] 17 gm PO BID packet 01/25/19 Senna/Docusate Sodium [Senokot-S] 2 tablet PO BID tablet 01/25/19 Tamsulosin HCl [Flomax] 0.4 mg PO DAILY@1730 capsule 01/25/19 Tizanidine HCl [Zanaflex] 4 mg PO Q8H PRN PRN tablet 01/25/19 Vitamin B Comp W-C [Allbee W/C Caplet, Thera B Comp/C] 1 capsule PO DAILYCM capsule 01/25/19 fentaNYL patch [Duragesic patch] 25 mcg TRANSDERM. Q3D #1 patch 01/25/19 prednisoLONE eye drops (1 mL) [Pred Forte eye drops (1 mL)] 1 drop EACH EYE BID opth.btl 01/25/19 Following Prescrptions Were Given to Patient: fentaNYL patch [Duragesic patch] 25 mcg TRANSDERM. Q3D #1 patch Prescription Printed Oxycodone [Oxyir] 5 - 10 mg PO Q4H PRN PRN #70 tab PRN Reason: Severe Pain (6-10/10) Prescription Printed Primary Care Physician: Harvey Salguero DO [Primary Care Provider] - Please Follow Up With: Urology Please Follow Up With: Dr. Perez surgeon Additional Instructions: D/C martin to back on 01/28/2019. F/U with Dr. Perez surgeon. F/U with urology d/t post-op urinary retention started on flomax and. Ct scan showed Non- obstructive calculus 10.5mm in the lower pole of left kidney. Disposition: Care Home facility Patient Condition:: Stable Rehab Course The patient is a 68 year old M with PMH of GERD admitted to [facility] on 01/21/2019 for Debility secondary to TLIF L2-S1, PLF T10 Ilium, for greater than 3 hours of therapy daily with the goal of returning home after near his prior level of independence. On January 15, 2019 Dr. Vitaly Perez performed a TLIF L2-S1 and PLIF T10 ilium due to degenerative thoracolumbar scoliosis, lumbar spine instability, intractable lower back pain, and failure of conservative therapy. Post-op, patient developed urinary retention Flomax was initiated and Kelley catheter was discontinued on January 21, 2019. Patient also developed thrush and was started on nystatin. Patient lives in a 1 level house with spouse, was independent with driving, used walker or cane with mobility and needed minimal assistance with lower body dressing. During rehab course CT of abd/pelvis done on 01/24/2019.which showed Small right pleural effusion with bibasilar atelectasis, Large amount of fecal material is seen in the colon was in the right hemicolon. Nonobstructive calculus 10.5mm in the lower pole of left kidney and Sigmoid diverticulosis. Patient was given mom, dulcolax supp, soap suds enema and magnesium citrate. Patient has had 7 large formed and loose stools since yesterday. Will defer to urology outpatient to f/u for post urinary retention and nonobstructive calculus. Patient had right hip pain that radiated up to right groin and back, described it as a burning sensation. [place] intact to back without redness or drng, or s/sx of infection. Spoke with Essie SANDWICH PEDDLER with Dr. Perez which recommended Gabapentin, medrol dose pack and zanalfex prn. Patient has acute on chronic back pain which he is currently on on tylenol, oxyir, lidoderm patch and duragesic, polar care as needed post surgery. Elevated AST/ALT at previous hospital. On 01/22/19 elevated AST 44 ALT 60. On 01/23/19 levels WNL AST 29, ALT 47. Patient was unable to tolerate 3 hours or therapy daily, patient is discharged to [facility] and to f/u with Dr. Perez, Urology and PCP. Meaningful Use Info Meaningful Use Diagnoses (Choose all that apply): None applicable
--- NOTE | 2019-01-25 17:00 | NURSING ---
Report given to Judith schroeder and patient discharged with via car transport at this time. Patient in good spirits. Able to move with x 1 assist via walker.
== END 2019-01-25 17:00 | disposition skilled nursing facility (03) | DRG 561 ==
PROVIDERS: Nurse Practitioner Family; Admitting Provider Psychiatry & Neurology Neurology; Family Provider Preventive Medicine Occupational Medicine; PCP Preventive Medicine Occupational Medicine; Referring Provider Psychiatry & Neurology Neurology; Visit Provider Student in an Organized Health Care Education/Training Program
DX: Z47.89 Encounter for other orthopedic aftercare (principal); Z98.1 Arthrodesis status; Z87.891 Personal history of nicotine dependence; G47.33 Obstructive sleep apnea (adult) (pediatric); K21.9 Gastro-esophageal reflux disease without esophagitis; B37.9 Candidiasis, unspecified; G89.29 Other chronic pain; K59.01 Slow transit constipation; K57.30 Diverticulosis of large intestine without perforation or abscess without bleeding; N20.0 Calculus of kidney; N99.89 Other postprocedural complications and disorders of genitourinary system
CPT/HCPCS: 36415; 74177; 80053; 80061; 80076; 85025; 97110; 97116; 97163; 97166; 97530; 97535; 97802; Q9967; A4216

== ENCOUNTER 2019-03-12 02:30 | Emergency (ER) | payer MEDICARE, OTHER, SELFPAY ==
[2019-01-21 15:49] VITALS: BMI 28.1
[2019-03-12] VITALS (7 sets, daily range): BP systolic 114–140; BP diastolic 81–99; PULSE 76–91; RESP 16–18; TEMP 36.9–37.1; O2SAT 93–98; BMI 25.3
--- NOTE | 2019-03-12 02:57 | CT_ITS ---
STUDY: CT ABDOMEN AND PELVIS WITH CONTRAST REASON FOR EXAM: Male, 68 years old. Right-sided abdominal pain with diarrhea. Nausea. Pain since laminectomy 01/15/2019. RADIATION DOSAGE (If Supplied By Facility): CTDIvol = ( 14.79 ) mGy, DLP = ( 816.22 ) mGycm TECHNIQUE: Transaxial images were obtained from the dome of the diaphragm to the symphysis pubis with oral contrast. 100ML IV/Oral Isovue 370 was administered. Sagittal and coronal images were reconstructed. Individualized dose optimization techniques were used for this CT. COMPARISON: January 24, 2019. FINDINGS: The visualized lung bases are unremarkable. Small right pleural effusion has resolved. Heart is not enlarged. Coronary artery calcifications. No pericardial effusion. Moderate hiatal hernia. Normal liver. Normal gallbladder and extrahepatic biliary system. Normal spleen. Normal pancreas. Normal bilateral adrenal glands. Normal right kidney. 9 mm nonobstructing inferior pole left renal calculus unchanged. Normal visualized stomach. Normal small intestine. Mild colonic diverticulosis. The appendix is visualized and appears normal. Normal abdominal aorta. Normal inferior vena cava. Normal retroperitoneum. No intra-abdominal free air. Normal urinary bladder. Prostate gland is not enlarged. Normal abdominal wall. Posterior fusion from T10 through S1 with bilateral rods and pedicle screws. Multilevel laminectomies as well as prosthetic discs in the lumbar spine. CT/Abdomen/Pelvis WITH Contrast IMPRESSION: No acute findings in the abdomen or pelvis. Resolution of small right pleural effusion. Moderate hiatal hernia unchanged. Stable nonobstructing inferior pole left renal calculus. Mild colonic diverticulosis. Coronary artery calcifications. Postoperative changes of posterior fusion T10-S1 Electronically Signed: Antonio Avalos MD at 5:21 EDT , Service support ,
--- NOTE | 2019-03-12 02:58 | ED.DCSUM_ITS ---
History of Present Illness Chief Complaint: General Illness Narrative: This patient is a 68-year-old male who presents with chills and sweats. He also complains of generalized weakness and frequent diarrhea. Symptoms have been present for about 1 week. He also complains of some epigastric and right upper quadrant abdominal pain. He did have a complex spinal surgery on January 15 which sounds like an extensive fusion. He has had some abdominal pain since that time although this was attributed to a hiatal hernia it is worse in the last week. The diarrhea is new. He reports chills and sweats but has not checked a temperature at home. No urinary symptoms. No vomiting. No cough. Past Medical History - Allergies and Home Meds Allergies/Adverse Reactions: Allergies naproxen [From Aleve] Allergy (Mild, Verified 03/12/19 02:46) Rash Gadolinium-MRI Contrast Medium Allergy (Verified 03/12/19 02:46) Rash varenicline [From Chantix] Adverse Reaction (Verified 03/12/19 02:46) Anaphylaxis Primary Care Physician: Harvey Salguero DO [Primary Care Provider] - Surgical History: appendectomy, cataract - bilateral, - - pilondial cyst, right ankle fusion, lumbar decompression and disectomy L2-5 (2016), left foot two toes fused, facial cyst Smoking Status: Former smoker - Family History Maternal Family History: Reports: Unknown Paternal Family History: Reports: Unknown Review of Systems All systems negative except as indicated General: Reports: Chills, Sweats ENT: Reports: Rhinorrhea. Denies: Sore throat Cardiovascular: Denies: Chest pain Respiratory: Denies: Dyspnea, Cough Gastrointestinal: Reports: Abdominal pain, Nausea, Diarrhea. Denies: Vomiting Skin: Denies: Rash Neurological: Denies: Headache Physical Exam Vital Signs/Narrative: Vital Signs Temp Pulse Resp BP Pulse Ox 03/12/19 02:41 98.5 F 03/12/19 02:31 98.5 F 91 17 140/98 H 97 General: Well nourished Head: Normocephalic Eyes: EOMI ENT: Moist mucous membranes Neck: Supple Cardiovascular: Regular rate, Regular rhythm Respiratory: No distress, CTA bilaterally Abdomen: Soft, - - Patient has epigastric and bilateral upper quadrant abdominal tenderness without guarding without rebound no Garvin sign Skin: Normal color Neurological: Alert Psychological: Normal affect Diagnostic/Tx/Re-eval Impressions Abdomen/Pelvis CT 03/12/19 02:57 IMPRESSION: No acute findings in the abdomen or pelvis. Resolution of small right pleural effusion. Moderate hiatal hernia unchanged. Stable nonobstructing inferior pole left renal calculus. Mild colonic diverticulosis. Coronary artery calcifications. Postoperative changes of posterior fusion T10-S1 Electronically Signed: Antonio Avalos MD at 5:21 EDT , Service support , Chest X-Ray 03/12/19 05:27 IMPRESSION: No acute cardiopulmonary disease. Electronically Signed: Antonio Avalos MD at 5:53 EDT , Service support , 03/12/19 02:57 Abdomen/Pelvis WITH Contrast [CT] Stat 03/12/19 05:27 CXR [Chest 1 View (Portable)] [RAD] Stat Laboratory Results 03/12/19 03/12/19 03/12/19 02:40 02:40 02:40 WBC 7.5 RBC 3.96 L Hgb 12.8 L Hct 38.9 L MCV 98.2 H MCH 32.3 H MCHC 32.9 RDW Std Deviation 48.8 H RDW Coeff of Veronica 13.5 Plt Count 382 MPV 8.1 Immature Gran % (Auto) 0.300 Neut % (Auto) 65.6 Lymph % (Auto) 24.5 [place] % (Auto) 8.2 Eos % (Auto) 1.1 Baso % (Auto) 0.3 Absolute Neuts (auto) 4.9 Absolute Lymphs (auto) 1.83 Nucleated RBC % 0 ESR 16 Sodium 142 Potassium 3.5 Chloride 107 Carbon Dioxide 26.0 Anion Gap 9 BUN 15 Creatinine 0.77 Estim Creat Clear Calc 66.50 Est GFR (MDRD) Af Amer 129 Est GFR (MDRD) Non-Af 107 BUN/Creatinine Ratio 19.6 Glucose 100 Calcium 9.8 Total Bilirubin 0.40 AST 15 ALT 24 Alkaline Phosphatase 137 H C-React Prot Ext Range Total Protein 8.1 Albumin 4.1 Globulin 4.0 Albumin/Globulin Ratio 1.0 Lipase 294 Urine Color Urine Clarity Urine pH Ur Specific [place] Urine Protein Urine Glucose (UA) Urine Ketones Urine Occult Blood Urine Nitrite Urine Bilirubin Urine Urobilinogen Ur Leukocyte Esterase 03/12/19 03/12/19 02:40 05:41 WBC RBC Hgb Hct MCV MCH MCHC RDW Std Deviation RDW Coeff of Veronica Plt Count MPV Immature Gran % (Auto) Neut % (Auto) Lymph % (Auto) [place] % (Auto) Eos % (Auto) Baso % (Auto) Absolute Neuts (auto) Absolute Lymphs (auto) Nucleated RBC % ESR Sodium Potassium Chloride Carbon Dioxide Anion Gap BUN Creatinine Estim Creat Clear Calc Est GFR (MDRD) Af Amer Est GFR (MDRD) Non-Af BUN/Creatinine Ratio Glucose Calcium Total Bilirubin AST ALT Alkaline Phosphatase C-React Prot Ext Range < 2.90 Total Protein Albumin Globulin Albumin/Globulin Ratio Lipase Urine Color Yellow Urine Clarity Clear Urine pH 6.5 Ur Specific [place] 1.010 Urine Protein 15 H Urine Glucose (UA) Normal Urine Ketones Negative Urine Occult Blood Negative Urine Nitrite Negative Urine Bilirubin Negative Urine Urobilinogen Normal Ur Leukocyte Esterase 25 H - Medical Decision Making Work-up as above is unremarkable. Patient was complaining of abdominal pain and diarrhea raising concern for process such as colitis. CT imaging of the abdomen however is unremarkable. Chest x-ray and urinalysis also did not provide a clear explanation of symptoms. I added on inflammatory markers as hardware infection from his surgery is considered. Inflammatory markers are also normal. I did speak to Dr. Dugan, Dr. Moreno partner who felt that infectious process related to the surgery will be ruled out by normal labs, no rmal inflammatory markers. Patient was advised to keep his scheduled follow-up appointment. He does not appear to have any acute serious life-threatening or surgical pathology. He was instructed on specific signs and symptoms to monitor for and understands to return for new or worsening symptoms. Patient was discharged. ED Disposition - Plan for ED Patient: Disposition: Home or Assisted Living Diagnosis: Chills, Diarrhea Instructions: FEBRILE ILLNESS, Uncertain Cause (Adult), DIET, Vomiting or Diarrhea [6yr-Adult] Referrals: Harvey Salguero DO [Primary Care Provider] -
[2019-03-12] MEDS: Ondansetron 4 MG/2 ML Vial IV (03:02)
[2019-03-12] MEDS: Morphine 4 MG/ML Syringe IV (03:02)
[2019-03-12 03:05] LABS: Absolute Lymphocyte Count 1.83 X10^3/uL (0.83-4.51); Absolute Neutrophil Count 4.9 X10^3/uL (2.0-7.7); Basophil# 0.02 X10^3/uL; Basophil% 0.3 % (0-1); Eosinophil# 0.08 X10^3/uL; Eosinophils% 1.1 % (0-5); Hematocrit 38.9 % (40-54); Hemoglobin 12.8 g/dL (13.0-16.5); Lymphocyte # 1.83 X10^3/ul (4.0); Lymphocyte % 24.5 % (19-41); Mean Corp Hgb Conc 32.9 g/dL (32-36); Mean Corpuscular Hgb 32.3 pg (27.0-32.0); Mean Corpuscular Volume 98.2 fL (80-94); Mean Platelet Vol. 8.1 fl (6.2-12.0); Monocyte# 0.61 X10^3/uL; Monocyte% 8.2 % (0-10); NRBC Flagged by Analyzer 0 % (0-5); Neutrophil # 4.91 X10^3/uL (2.7-7.7); Neutrophil % 65.6 % (47-70); Platelet Count 382 K/mm3 (150-450); RBC Distribution Width CV 13.5 % (11.6-14.6); RBC Distribution Width SD 48.8 fl (35.1-43.9); Red Blood Count 3.96 M/mm3 (4.6-6.2); White Blood Count 7.5 K/mm3 (4.4-11.0)
[2019-03-12 03:18] LABS: AST(SGOT) 15 U/L (15-37); Alanine Aminotransfer ALT/SGPT 24 U/L (16-61); Albumin, Serum 4.1 g/dL (3.2-5.0); Alkaline Phosphatase 137 U/L (45-117); Anion Gap 9 (5-15); BUN 15 mg/dL (7-18); BUN/Creat Ratio 19.6 RATIO (10-20); Calcium,Total 9.8 mg/dL (8.5-10.1); Chloride 107 mmol/L (98-107); Creatinine, Serum 0.77 mg/dL (0.70-1.30); EST Glomerular Filtration Rate 107 mL/min (>60); Est Glom Filt Rate - Afr Amer 129 mL/min (>60); Glucose 100 mg/dL (74-106); Lipase 294 U/L (73-393); Potassium 3.5 mmol/L (3.5-5.1); Protein, Total 8.1 g/dL (6.4-8.2); Sodium Level 142 mmol/L (136-145)
--- NOTE | 2019-03-12 05:27 | RAD_ITS ---
STUDY: X-RAY CHEST REASON FOR EXAM: Male, 68 years old. Right upper quadrant pain since back surgery on 01/15/2019. TECHNIQUE: AP portable chest. COMPARISON: None. FINDINGS: The lungs are clear and expanded. There is no demonstrated pleural abnormality. Normal size heart. Normal mediastinum and km. Normal visualized pulmonary arteries. Normal visualized aortic arch and descending thoracic aorta. Postoperative changes lower thoracic fusion incompletely visualized. Normal visualized ribs, clavicles, and shoulders. There is no demonstrated abnormality of the visualized soft tissue structures of the upper abdomen. RAD/Chest 1 View (Portable) IMPRESSION: No acute cardiopulmonary disease. Electronically Signed: Antonio Avalos MD at 5:53 EDT , Service support ,
[2019-03-12 05:58] LABS: Bacteria 0 SEEN /hpf (None Seen); Mucous, Urine 0 SEEN /hpf (<or=2+); Red Blood Cells-Urine 0 SEEN /hpf (0-5); White Blood Cells 0 SEEN /hpf (0-5)
[2019-03-12 06:09] LABS: Color, Urine Yellow (Yellow); Glucose, Dipstick Normal (Normal); Ketone-Dipstick Negative (Negative); Leukocyte Esterase-Dipstick 25 /ul (Negative); Nitrite-Dipstick Negative (Negative); Occult Blood-Urine Negative /ul (Negative); Protein-Dipstick 15 mg/dl (Negative); Urine Bilirubin Dipstick Negative (Negative); Urine Clarity Clear (Clear); Urine Urobilinogen Normal (Normal); Urine pH 6.5 (5.0 - 8.0)
[2019-03-12 06:10] LABS: CRP < 2.90 mg/L (0.0-3.0)
[2019-03-12 06:23] LABS: Erythrocyte Sedimentation Rate 16 mm/hr (0-20)
[2019-03-12 07:30] LABS: Amorphous Sediment 1+; Squamous Epithelial Cells - UA 0-5 SEEN /hpf (0-5)
== END 2019-03-12 06:49 | disposition home or self-care (01) ==
PROVIDERS: Emergency Provider Emergency Medicine; Family Provider Preventive Medicine Occupational Medicine; PCP Preventive Medicine Occupational Medicine
DX: R68.83 Chills (without fever) (principal); R19.7 Diarrhea, unspecified; R10.13 Epigastric pain; R10.11 Right upper quadrant pain; R10.12 Left upper quadrant pain; Z87.891 Personal history of nicotine dependence
CPT/HCPCS: 36415; 71045; 74177; 80053; 81001; 83690; 85025; 85652; 86140; 96374; 96375; 99285; Q9967; A4216; J2405

== ENCOUNTER → 2019-12-02 10:45 | Outpatient (CLI) | payer MEDICARE, OTHER, SELFPAY ==
[2019-03-12 02:31] VITALS: BMI 25.3
--- NOTE | 2019-12-02 09:30 | PET_ITS ---
EXAMINATION: FDG PET CT INDICATIONS: A 68-year-old male with reported history of pulmonary nodularity. COMPARISON EXAMINATION: CT of the chest report dated 10/13/19. TECHNIQUE: Following the intravenous administration of 14.63 mCi of F-18 deoxyglucose via the left antecubital fossa, multiplanar image acquisitions of the neck, chest, abdomen and pelvis to level of mid thigh, obtained at one hour post radiopharmaceutical administration contemporaneously interpreted with the current CT of the neck, chest, abdomen and pelvis to level of mid thigh, dated 12/02/[address] of the chest report dated 10/13/19 reveal: SERUM GLUCOSE LEVEL: 80 mg/dl. HEIGHT: 68 inches. WEIGHT: 175 lbs. FINDINGS: 1. There is no quantitative scintigraphic evidence of abnormal increased glucose metabolism within the context of the bilateral hemithorax pulmonary parenchyma-mediastinal structures to correlate with structural changes noted on review of CT of the thorax dated 12/02/19. 2. Normal physiologic distribution of the radiopharmaceutical is apparent in the hepatic and splenic parenchyma, both renal units, bladder and visualized intestinal tract. There is uniform distribution of the radiopharmaceutical concentration defined in the visualized cerebellar hemispheres and cerebral cortical structures. Enhanced tracer uptake extends from the proximal to distal esophagus, segmental in presentation. There is an increase in radiopharmaceutical uptake visualized in the ascending and descending thoracic aorta commensurate with activated leukocytes associated with atherosclerotic plaque formation. (Jona et al, Clinical Nuclear Medicine 29:93, 2004). Pertinent CT findings are as follows. CHEST: Asymmetric increased tracer uptake is noted in the left pterygoid musculature. Atherosclerotic calcification is defined in the thoracic aorta without evidence of dilatation, aneurysm formation. Coronary arterial calcification is observed. A prominent hiatal hernia is defined. Bilateral axillary and scattered mediastinal soft tissue is ametabolic. There are no parenchymal densities-nodules defined in the right and left hemithorax demonstrating discernible increased FDG concentration. ABDOMEN AND PELVIS: Atherosclerotic calcification is defined in the abdominal aorta without evidence of dilatation, aneurysm formation. Pelvic arterial calcification is observed. Bilateral inguinal subcentimeter soft tissue densities are non-glucose avid. Dystrophic calcification is manifest within the prostate gland without evidence of facilitated tracer uptake. Calcification is noted in the left kidney. SKELETAL: Multifocal orthopedic hardware placement is noted in the thoracic-lumbar spine commensurate with spinal fusion operative intervention. Otherwise, degenerative changes defined in the cervical, thoracic and lumbar spine demonstrate no evidence of glucose hypermetabolism. PET/PET/CT Tumor Base -Thigh Init IMPRESSION: 1. NEGATIVE EXAMINATION. There is no quantitative scintigraphic evidence of abnormal increased glucose metabolism within the context of the mediastinal structures-bilateral lung valadez to correlate with structural changes noted on review of CT of the thorax dated 12/02/19. 2. Metabolic and/or anatomic stability may be ensured in the nonglucose avid mediastinal structures-bilateral lung parenchymal densities with repeat FDG PET study and/or CT of the thorax in three-six months. (Xiu, Journal of Nuclear Medicine 45:88, P2004. Nguyễn, Seminars in Thoracic and Cardiovascular Surgery 14:292, 2002). Electronic Signature Karthikeyan Ellison D.O. Electronically Signed: Karthikeyan Ellison DO at 8:41 EDT Tel , Service support ,
== END ==
PROVIDERS: PCP Preventive Medicine Occupational Medicine; Referring Provider Preventive Medicine Occupational Medicine; Visit Provider Preventive Medicine Occupational Medicine
DX: R91.8 Other nonspecific abnormal finding of lung field (principal)
CPT/HCPCS: 78815; A9552

== ENCOUNTER → 2020-12-10 07:09 | Outpatient (CLI) | payer MEDICARE, OTHER, SELFPAY ==
[2019-03-12 02:31] VITALS: BMI 25.3
--- NOTE | 2020-12-10 07:15 | CT_ITS ---
STUDY: LOW DOSE CT LUNG CANCER SCREENING REASON FOR EXAM: Male, 69 years old. Patient smoked 1 pack per day for 30 years. The patient quit 2 years ago. RADIATION DOSAGE (If Supplied By Facility): CTDIvol = ( 3.02 ) mGy, DLP = ( 104.58 ) mGycm TECHNIQUE: No contrast was administered. Low dose technique was utilized (average mAS-38 and kVp 120). 1.25 mm axial source images with a slice interval of 1.25-mm were reconstructed in lung windows. 2.5 mm axial source images with a slice interval of 2.5-mm were reconstructed in lung windows. 5.0 mm axial source images with a slice interval of 5.0-mm were reconstructed in soft tissue windows. Nodule measured using lung windows on PACS and/or independent workstation with automated measurement of minimum and maximum diameter. Nodule measurement reported as average diameter rounded to the nearest whole number. Growth is defined as an increase ins size of greater than 1.5 mm. COMPARISON: None. NODULES: No suspicious nodules are seen. Emphysema: Mild degree of emphysematous changes. Mild increased markings in the lateral inferior aspect of the lingular segment of the left upper lobe suggestive of scarring. Endobronchial lesion: None Aorta: Mild atherosclerotic calcific plaque at the level of the aortic arch. Coronary arteries: Coronary artery calcification. Heart: Unremarkable Pulmonary artery: Unremarkable Mediastinal nodes: Unremarkable Other chest and abdominal findings: Moderate sized hiatal hernia. CT/Low Dose CT Lung Screening IMPRESSION: Lung-RADS category 2 - Continue annual screening with LDCT in 12 months. IMPORTANT NOTES FOR USE: ACR Lung-RADS Version 1.1 Assessment Categories Release Date: 2018 Category: Coded 0-4 bases on nodule(s) with highest degree of suspicion. Negative screen is defined as categories 1 and 2; a positive screen is defined as categories 3 and 4. Category 3 and 4A nodules that are unchanged on interval CT should be coded as category 2, and individuals returned to screening in 12 months. Category 4X: Category 3 or 4 nodules with additional imaging findings that increase the suspicion of lung cancer, such as spiculation, GGN that doubles in size in 1 year, enlarged lymph notes, etc. Category Modifiers: S (significant finding unrelated to lung cancer) Electronically Signed: Pernell Dowling MD at 9:18 EDT , Service support ,
--- NOTE | 2020-12-10 14:26 | PFTCOMP ---
COMPLETE PULMONARY FUNCTION TEST INTERPRETATION Brief HPI: Patient is a 69 year old male, currently under the care of Dr. Hatfield, who presents to [facility] for complete pulmonary function tests secondary to diagnosis of tobacco abuse. Respiratory therapist reports good effort and reproducible results. Interpretation: Forced expiration spirometry shows no large airways obstructive ventilatory defect with an FEV1 of 101% predicted. There is no significant bronchodilator response by strict ATS criteria. Spirograms are of good quality and plateau normally. The respiratory flow volume loop shows a normal pattern. Lung volumes by body plethysmography show a normal total lung capacity at 6.01 L, 100% predicted. All other lung volumes are within normal limits. Diffusion capacity by carbon monoxide is normal at 103% predicted. The airway resistance is normal. No previous pulmonary function tests were available for review. Impression: Normal pulmonary function test
== END ==
PROVIDERS: PCP Preventive Medicine Occupational Medicine
DX: Z87.891 Personal history of nicotine dependence (principal)
CPT/HCPCS: 71271; 94060; 94726; 94729

== ENCOUNTER → 2021-02-22 15:20 | Outpatient (CLI) | payer MEDICARE, OTHER, SELFPAY ==
[2019-03-12 02:31] VITALS: BMI 25.3
--- NOTE | 2021-02-22 15:30 | MRI_ITS ---
STUDY: MRI CERVICAL SPINE WITHOUT CONTRAST REASON FOR EXAM: Male, 70 years old. T-9 PARAPLEGIC -- gait and balance problems, several surgeries back, fall and burst fx T9 TECHNIQUE: Standardized fat and water weighted pulse sequences were obtained in the sagittal and axial planes. COMPARISON: None FINDINGS: Normal foramen magnum and brainstem-cervical cord junction. Normal craniovertebral junction. Normal anterior atlantoaxial articulation. Normal odontoid process. Normal cervical lordosis. Normal vertebral bodies and posterior osseous elements. C2-3: Normal endplates. Normal disc height, signal and morphology. Normal central canal and intervertebral neural foramina. C3-4: Normal endplates. Normal disc height, signal and morphology. Normal central canal. Mild foraminal encroachment due to uncinate hypertrophy. C4-5: Mild spondylotic bar. No canal stenosis. Foraminal stenosis is mild on the left and severe on the right due to uncinate and right facet hypertrophy. C5-6: Disc space narrowing. Moderate spondylotic bar causes mild cord flattening and borderline canal stenosis. Severe foraminal stenosis due to uncinate hypertrophy. C6-7: Normal endplates. Disc space narrowing. Normal central canal. Severe foraminal stenosis due to uncinate hypertrophy. C7-T1: Disc space narrowing. 2 mm degenerative anterolisthesis. Mild, noncompressive spondylotic bar. Moderate foraminal encroachment due to uncinate hypertrophy. T1-T2: 2 mm degenerative anterolisthesis. No canal stenosis. Mild left foraminal encroachment due to spurring. Normal cervical cord. Normal visualized soft tissue structures. MRI/Spine Cervical (Routine) IMPRESSION: 1. C5-6 cord flattening due to spondylosis. 2. Moderate to severe foraminal stenosis from C4-5 through C7-T1. 3. Mild anterolisthesis at C7-T1 and T1-2. Electronically Signed: Bijal Trinidad MD at 18:32 EDT Tel , Service support ,
--- NOTE | 2021-02-22 15:34 | MRI_ITS ---
EXAM: MR PELVIS WITHOUT AND WITH INTRAVENOUS CONTRAST : 1950 CLINICAL INDICATION: MUSCLE WEAKNESS L4/L45, BURNING PAIN AND WEAKNESS TECHNIQUE: Multiplanar and multisequence MR images of the pelvis without and with intravenous contrast. This report was created using Podotree report Shareaholic technology. CONTRAST: IV 17cc dotarem COMPARISON: PET/CT scan December 02, 2019 FINDINGS: APPENDIX: No evidence of acute appendicitis. INTRAPERITONEAL SPACE: Unremarkable. No ascites or other fluid collection. BLADDER: Unremarkable. REPRODUCTIVE: Unremarkable as visualized. No mass. BONES/JOINTS: Extensive surgical changes of the lumbar spine and lumbosacral junction again seen. Surgical fixators extend into the ilium bilaterally. No evidence of bone marrow edema. No joint space abnormality. Visualized muscular compartments are normal. No suspicious lytic or blastic abnormality. SOFT TISSUES: See above. LYMPH NODES: Unremarkable. No enlarged lymph nodes. MRI/Pelvis W/WO Contrast IMPRESSION: Postoperative changes of the spine and lumbosacral junction. No acute or significant chronic pelvic abnormality. at 1022 Reported and signed by: Ken Armenta MD Electronically Signed: Ken Armenta MD at 10:21 EDT Tel , Service support ,
[2021-02-22 15:56] LABS: CREATININE FINGERSTICK 0.9 mg/dL (0.70-1.30); EGFR FINGERSTICK > 60.0000 mL/min (>60)
== END ==
PROVIDERS: PCP Preventive Medicine Occupational Medicine; Referring Provider Psychiatry & Neurology Neurology; Visit Provider Psychiatry & Neurology Neurology
DX: G82.20 Paraplegia, unspecified (principal)
CPT/HCPCS: 72141; 72197; A9575

== ENCOUNTER → 2022-01-10 | Outpatient (CLI) | payer MEDICARE, OTHER, SELFPAY ==
--- NOTE | 2022-01-10 06:40 | CT_ITS ---
STUDY: CT CHEST WITHOUT CONTRAST- LOW DOSE SCREENING PROTOCOL REASON FOR EXAM: Male, 71 years old. Former smoker. Quit smoking less than 5 years ago. 30 pack per year history. No current symptoms of lung cancer or pulmonary infection. Shared decision-making with referring PCP documented in patient''s record. RADIATION DOSAGE (If Supplied By Facility): CTDIvol = ( 3.02 ) mGy, DLP = ( 96.28 ) mGycm TECHNIQUE: Low dose screening CT examination performed from the base of the neck to the upper abdomen. Sagittal and coronal reformatted images performed. Sagittal and coronal MIP images provided. The measurements provided are average, rounded measurements per ACR guidelines. COMPARISON: 12/10/2020 FINDINGS: The lungs are normal. There is no demonstrated pleural abnormality. Normal heart and pericardium. There are calcifications of the coronary arteries. Large hiatal hernia. Normal hilar regions. Normal unenhanced pulmonary arteries. Normal aorta arch and descending thoracic aorta. Normal osseous structures. There is no demonstrated abnormality of the visualized upper abdomen. CT/Low Dose CT Lung Screening IMPRESSION: 1. No significant indeterminate incidental findings requiring additional imaging. 2. Incidental findings include large hiatal hernia.. ASSESSMENT CATEGORY: LungRADS 1 - Negative. Continue annual screening with LDCT in 12 months, per established ACR guidelines. Electronically Signed: Karthikeyan Jha MD at 8:51 EDT ,
--- NOTE | 2022-01-11 07:30 | PFT ---
INTRODUCTION: The patient is a 71-year-old male that presents for pulmonary function studies secondary to a diagnosis of COPD. Respiratory therapy reported good patient effort. Bronchodilators were used during testing. INTERPRETATION: Forced expiration spirometry demonstrates no evidence of a large airways obstructive ventilatory defect. There was no significant response to aerosolized bronchodilators. Spirograms are of good quality and plateau normally. Body plethysmography was performed and reveals lung volumes to be within normal limits. Diffusing capacity by single breath CO was also within normal limits. IMPRESSION: Grossly normal pulmonary function studies.
== END | disposition home or self-care (01) ==
LOC: PSN 06:36
PROVIDERS: PCP Preventive Medicine Occupational Medicine
DX: Z87.891 Personal history of nicotine dependence (principal); J34.2 Deviated nasal septum
CPT/HCPCS: 71271; 94060; 94726; 94729

== ENCOUNTER → 2024-10-15 | Outpatient (CLI) | payer MEDICARE, OTHER, SELFPAY ==
--- NOTE | 2024-10-15 13:55 | ECHOD_ITS ---
Reason For Study Reason For Study: PHTN Procedure This was a 2D Doppler, Color Flow transthoracic echocardiogram. Exam performed in department. Left Ventricle Normal LV size. Left ventricular systolic function is normal. The left ventricular ejection fraction is 60 %. No regional wall motion abnormalities noted. Right Ventricle Normal RV size. Normal systolic function. Atria Normal left atrium. Normal right atrium. Mitral Valve Normal mitral valve. Tricuspid Valve Normal tricuspid valve. Aortic Valve Trisinus/trileaflet aortic valve. Pulmonic Valve Normal pulmonic valve. Great Vessels Mild to moderately dilated aortic root. The pulmonary artery is normal size. Normal inferior vena cava. Pericardium/Pleural No pericardial effusion. MMode/2D Measurements & Calculations LVIDd: 4.3 cm IVSd: 0.95 cm Ao root diam: 4.2 cm LVIDs: 2.6 cm LVPWd: 1.1 cm RVDd: 2.8 cm FS: 39.7 % LAV(MOD-bp): 39.9 ml LVAd ap4: 24.3 cm2 SV(MOD-sp4): 35.5 ml LAV(MOD-bp) Indexed: 20.0 ml/m2 LVLd ap4: 7.2 cm SI(MOD-sp4): 17.8 ml/m2 LAV(MOD-sp2): 34.0 ml EDV(MOD-sp4): 67.2 ml LAV(MOD-sp4): 45.9 ml EDV(sp4-el): 69.4 ml LVAs ap4: 15.2 cm2 LVLs ap4: 5.9 cm ESV(MOD-sp4): 31.7 ml ESV(sp4-el): 33.1 ml EF(MOD-sp4): 52.9 % EF(sp4-el): 52.4 % SV(sp4-el): 36.4 ml LA A4 area: 18.6 cm2 LA dimension(2D): 3.1 cm RA A4 area: 9.4 cm2 TAPSE: 2.1 cm Time Measurements MV dec time: 0.26 sec Doppler Measurements & Calculations MV E max jus: 57.9 cm/sec Lat Peak E' Jus: 4.1 cm/sec Med Peak E' Jus: 4.4 cm/sec MV A max jus: 77.5 cm/sec E/E' lat: 14.0 E/E' med: 13.0 MV E/A: 0.75 Ao V2 max: 91.4 cm/sec LV V1 max: 81.0 cm/sec MV dec slope: 224.5 cm/sec2 Ao max P.3 mmHg LV V1 max P.6 mmHg Ao V2 mean: 65.2 cm/sec Ao mean P.9 mmHg Ao V2 VTI: 20.8 cm PA V2 max: 74.6 cm/sec ECHO/Echo Complete Interpretation Summary Normal LV size. Left ventricular systolic function is normal. The left ventricular ejection fraction is 60 %. Mild to moderately dilated aortic root. Ordering Physician: Forrest Durbin Referring Physician: Harvey Salguero Performed By: Heather Ireland, TAMMY, RVT
== END | disposition home or self-care (01) ==
LOC: CVS 13:52
PROVIDERS: PCP Preventive Medicine Occupational Medicine; Referring Provider Internal Medicine Critical Care Medicine; Visit Provider Internal Medicine Critical Care Medicine
DX: R06.09 Other forms of dyspnea (principal); R94.2 Abnormal results of pulmonary function studies
CPT/HCPCS: 93306

== ENCOUNTER → 2025-03-06 | Outpatient (CLI) | payer MEDICARE, OTHER, SELFPAY ==
--- NOTE | 2025-03-06 11:40 | CT_ITS ---
PROCEDURE: CHEST WITHOUT CONTRAST 03/06/2025 REASON FOR EXAM: SHORTNESS OF BREATH TECHNIQUE: Chest CT without contrast. Coronal and Sagittal reconstruction series were provided. One or more dose reduction techniques were used (e.g., Automated exposure control, adjustment of the mA and/or kV according to patient size, use of iterative reconstruction technique RADIATION DOSE SUMMARY: CTDlvol: 13.89 mGy DLP: 485.93 mGycm COMPARISON: Prior study dated July 16, 2024. FINDINGS: Hardware: None Lymph nodes: Small benign-appearing bilateral axillary lymph nodes. Small mediastinal lymph nodes. Heart and Vasculature: The heart is slightly enlarged. Atherosclerotic calcifications of the thoracic aorta. Thoracic aorta and pulmonary arteries have normal contours; noncontrast technique limits evaluation. Stable ectasia of the ascending thoracic aorta with a transverse dimension of 4.2 cm. Coronary Artery Calcifications: Present Lungs and Airways: Mild emphysematous changes are present. Stable faint 3 mm nodule seen in the peripheral aspect of the left lower lobe. Pleura: No pleural effusion Upper Abdomen: Moderate-sized hiatal hernia. Bones: Degenerative changes of the thoracic spine. Stable wedge deformity of the superior endplate of the T9 vertebrae. Once again, there is evidence of intrapedicular screw and chidi fixation of the lower thoracic and upper lumbar spine. CT/Chest without Contrast IMPRESSION: Coronary artery calcification (CAC) is is present Stable examination. Reading Location: [id number]
== END | disposition home or self-care (01) ==
PROVIDERS: PCP Family Medicine; Referring Provider Nurse Practitioner Family; Visit Provider Nurse Practitioner Family
DX: R06.09 Other forms of dyspnea (principal)
CPT/HCPCS: 71250; 94060; 94726; 94729